=== PATIENT | male | born 1975 | race American Indian/Alaskan Native ===

== ENCOUNTER 2020-06-12 08:13 | Day surgery (SDC) | payer MEDICARE ==
[2020-06-12] MEDS ORDERED: SODIUM CHLORIDE 0.9% 1000 ML 1,000 ML ONE (08:40)
[2020-06-12 09:20] LABS: Hematocrit 33.6 % (35.5-45.6); Hemoglobin 10.5 gm/dl (11.8-15.2); Mean Corpuscular HGB Conc 31 % (32-34); Mean Corpuscular Volume 84 fl (84-94); Platelet Count 249 K/mm3 (140-440); Red Blood Count 4.01 M/mm3 (3.65-5.03)
[2020-06-12 09:22] LABS: Red Cell Distribution Width 21.8 % (13.2-15.2)
[2020-06-12] MEDS ORDERED: HYDROmorphone 1 MG/1 ML INJ IV PRN ×2 (09:35)
[2020-06-12] MEDS ORDERED: fentaNYL 100 MCG/2 ML INJ IV ONE (09:35)
[2020-06-12] MEDS ORDERED: ONDANSETRON 4 MG/2 ML INJ IV PRN (09:35)
[2020-06-12 09:36] LABS: Calcium 7.6 mg/dL (8.4-10.2)
--- NOTE | 2020-06-12 09:36 | Anesthesia Day of Surgery ---
Anesthesia Day of Surgery - Day of Surgery Patient Examined: Yes Patient H&P Reviewed: Yes Patient is NPO: Yes
--- NOTE | 2020-06-12 09:37 | Anesthesia Consultation ---
Anesthesia Consult and Med Hx Date of service: 06/12/20 - Airway Anesthetic Teeth Evaluation: Caps ROM Head & Neck: Adequate Mental/Hyoid Distance: Adequate Mallampati Class: Class II Intubation Access Assessment: Good - Pre-Operative Health Status ASA Pre-Surgery Classification: ASA3 Nerve Block: SC; GA if needed - Pulmonary Hx Smoking: No Hx Asthma: No (+2FS) COPD: No Hx Pneumonia: No Hx Sleep Apnea: No - Cardiovascular System Hx Hypertension: Yes (HX HTN-LOST WT-NO MEDS NOW-BP OK) Hx Heart Attack/AMI: No Hx Heart Murmur: No - Central Nervous System Hx Seizures: No Hx Back Pain: No Hx Psychiatric Problems: No - Endocrine Hx Renal Disease: Yes Hx End Stage Renal Disease: Yes (Last HD yesterday) Hx Cirrhosis: No Hx Liver Disease: No - Hematic Hx Anemia: Yes Hx Sickle Cell Disease: No - Other Systems Hx Alcohol Use: No Hx Substance Use: No Hx Cancer: No Hx Obesity: No
[2020-06-12] MEDS ORDERED: DEXTROSE 50% IN WATER (25GM) 50 ML SYRINGE IV ONE (09:44)
[2020-06-12] MEDS ORDERED: SODIUM CHLORIDE 0.9% 1000 ML 1,000 ML IV SCH (09:45)
[2020-06-12] MEDS ORDERED: MIDAZOLAM 2 MG/2 ML INJ IV NR (10:00)
[2020-06-12] MEDS ORDERED: ceFAZolin/STERILE WATER 2 GM/20 ML SYRINGE IV NR (11:00)
[2020-06-12] MEDS ORDERED: BUPIVACAINE-EPINEPHRINE/PF 0.5%-1:200,000 (10 ML) VIAL INFILTRATI ONE (11:06)
[2020-06-12] MEDS ORDERED: dexAMETHasone 4 MG/ML VIAL ONE (11:07)
[2020-06-12] MEDS ORDERED: HEPARIN 10,000 UNITS/10 ML VIAL ONE (12:50)
[2020-06-12] MEDS ORDERED: HYDROmorphone 1 MG/1 ML INJ ONE (12:50)
[2020-06-12] MEDS ORDERED: GELATIN SPONGE SIZE 100 TP ONE (12:51)
[2020-06-12] MEDS ORDERED: propofoL 200 MG/20 ML VIAL IV ONE ×2 (12:51→14:02)
[2020-06-12] MEDS ORDERED: THROMBIN (RECOMBINANT) 5,000 UNIT VIAL TP ONE ×2 (12:53→14:45)
[2020-06-12] MEDS ORDERED: PROTAMINE SULFATE 50 MG/5 ML INJ ONE (12:53)
[2020-06-12] MEDS ORDERED: LIDOCAINE MPF (2%) 20 MG/1 ML VIAL 5 ML ONE (12:55)
[2020-06-12] MEDS ORDERED: MIDAZOLAM 2 MG/2 ML INJ ONE (12:56)
[2020-06-12] MEDS ORDERED: SODIUM CHLORIDE 0.45% 500 ML IV ONE (12:56)
[2020-06-12] MEDS ORDERED: HEPARIN 10,000 UNITS/10 ML VIAL IV ONE (14:45)
[2020-06-12] MEDS ORDERED: GELATIN SPONGE 12 X 7 TP ONE (14:45)
[2020-06-12] MEDS ORDERED: SODIUM CHLORIDE 0.9% 250 ML IVPB IV ONE (14:45)
--- NOTE | 2020-06-12 14:57 | Post Operative Note ---
Date of procedure: 06/12/20 Pre-op diagnosis: ESRD Post-op diagnosis: same Procedure: Left Arm Brachiocephalic AV Fistula Creation Anesthesia: MAC, regional Surgeon: ALKA VILLARREAL Estimated blood loss: minimal Pathology: none Condition: stable Disposition: PACU
[2020-06-12] MEDS ORDERED: oxyCODONE /ACETAMINOPHEN 5-325MG TAB PO PRN (14:58)
--- NOTE | 2020-06-12 15:00 | Short Stay Summary ---
Short Stay Documentation Date of service: 06/12/20 - History H&P: obtained from office Past Medical History: diabetes, ESRD, hypertension - Allergies and Medications Current Medications: Allergies shellfish derived Adverse Reaction (Severe, Verified 06/10/20 09:46) Swelling Home Medications Medication Instructions Recorded Confirmed Last Taken Type Calcitriol 1 tab PO DAILY 06/10/20 06/12/20 06/11/20 09:00 History Folic Acid/Vit B Complex and C 800 mcg PO DAILY 06/10/20 06/12/20 06/11/20 09:00 History [Dialyvite 800 Chewable Wafer] Renvela 80 mg PO TID 06/10/20 06/12/20 06/11/20 18:00 History Sensipar 180 mg PO DAILY 06/10/20 06/12/20 06/11/20 18:00 History Active Medications Cefazolin Sodium (Ancef/Sterile Water 2 Gm/20 Ml) 2 gm IV PREOP NR Stop: 06/12/20 23:00 Hydromorphone HCl (Dilaudid) 0.25 mg IV Q10MIN PRN PRN Reason: Pain, Moderate (4-6) Stop: 06/13/20 09:34 Hydromorphone HCl (Dilaudid) 0.5 mg IV Q10MIN PRN PRN Reason: Pain , Severe (7-10) Stop: 06/13/20 09:34 Sodium Chloride (Nacl 0.9% 1000 Ml) 1,000 mls @ 42 mls/hr IV DIRECT WALLY Last Admin: 06/12/20 09:50 Dose: 42 mls/hr Documented by: Midazolam HCl (Versed) 2 mg IV PREOP NR Stop: 06/12/20 23:59 Last Admin: 06/12/20 11:46 Dose: 2 mg Documented by: Ondansetron HCl (Zofran) 4 mg IV ONCE PRN PRN Reason: Nausea And Vomiting Oxycodone/Acetaminophen (Percocet 5/325) 2 tab PO Q4H PRN PRN Reason: Pain, Moderate (4-6) - Physical exam General appearance: no acute distress HEENT: Atraumatic Lungs: Normal air movement Heart: Regular rate Extremities: no ischemia - Hospital course Hospital course: the patient was taken to the operating room and had a left arm fistula creation. please refer to the operative note concerning details of the procedure. the patient tolerated the procedure well and was discharged home in stable condition. - Disposition Condition at discharge: Stable Disposition: DC-01 TO HOME OR SELFCARE Short Stay Discharge Plan Follow up with: PRIMARY CARE, [Primary Care Provider] - 7 Days
--- NOTE | 2020-06-12 15:17 | Operative Report ---
STAFF SURGEON: Dr. Jadon Pederson. PREOPERATIVE DIAGNOSIS: End-stage renal disease. POSTOPERATIVE DIAGNOSIS: End-stage renal disease. PROCEDURE PERFORMED: Left arm brachiocephalic AV fistula creation. COMPLICATIONS: None. ESTIMATED BLOOD LOSS: Less than 10 mL. ANESTHESIA: Regional block. INDICATIONS FOR PROCEDURE: This is a 44-year-old gentleman with end-stage renal disease, on hemodialysis, in need of upper extremity access. The patient had a vein mapping performed in the clinic, which demonstrated adequate cephalic vein in the left upper extremity and therefore, the patient was counseled on a fistula creation. He was explained the risks, benefits and alternatives of procedure, expressed understanding and wished to proceed. DESCRIPTION OF PROCEDURE: After appropriate consent was obtained, the patient was brought back to the operating room and placed on the operating table in supine position with the left arm extended. The patient was given appropriate medication for deep sedation. The left arm was prepped and draped in usual sterile fashion with ChloraPrep. Appropriate preoperative antibiotics were administered and appropriate time-out performed indicating correct patient, procedure, and site of the procedure. We then began the operation by making a transverse incision just below the antecubital fossa. This was carried to the subcutaneous tissue with a combination of blunt dissection and electrocautery. The cephalic vein was identified, mobilized and found to be suitable for venous outflow. We then proceeded to continue our dissection medially through the bicipital aponeurosis, which allowed us to expose the brachial artery, which was found to be suitable for arterial inflow. This was mobilized for appropriate distance, both proximally and distally. Control was obtained with vessel loops. The patient was given 5000 units of unfractionated heparin. After appropriate time had elapsed, the cephalic vein and a branch that was ligated and then transected and then the cephalic vein was then ligated in the distal aspect of the incision with a silk suture and then transected. The anterior surface was marked with a marking pen. The vein was flushed with heparinized saline and appropriately spatulated. Then proceeded to place vascular clamps on the brachial artery, both proximally and distally. A longitudinal arteriotomy was made with an 11 blade and extended with Mcdonald scissors. An end-to-side anastomosis was performed with a running 6-0 Prolene suture. Once complete, flow was established through the fistula, which had a nice palpable thrill. The clamps were completely removed. We then proceeded to obtain hemostasis along our suture line, which was obtained with hemostatic agents. Once we were satisfied with hemostasis, the wound was closed with the deep subcutaneous layer with interrupted 3-0 PDS and the skin was approximated with a running 4-0 Monocryl and Dermabond dressing. The patient tolerated the procedure well. The patient emerged from the deep sedation and was sent to recovery in stable condition. All the sponges, instruments and needle counts were correct at completion of the operation. JOB# [id number] N/SONJA
--- NOTE | 2020-06-12 17:20 | Post Anesthesia Evaluation ---
- Post Anesthesia Evaluation Patient Participated: Yes Airway Patent: Yes Stable Respiratory Function: Yes Nausea/Vomiting: No Temp > 96.8F: Yes Pain Manageable: Yes Adequeate Hydration: Yes Anesthesia Complications: No Block Receding Appropriately: Yes Patient on Ventilator: No
[2020-06-12 20:22] VITALS: BP 102/68
== END 2020-06-12 08:14 | disposition home or self-care (01) ==
LOC: OR 08:13
PROVIDERS: ATTEND Surgery Vascular Surgery
DX: I12.0 Hypertensive chronic kidney disease with stage 5 chronic kidney disease or end stage renal disease (principal); E11.22 Type 2 diabetes mellitus with diabetic chronic kidney disease; N18.6 End stage renal disease; J45.909 Unspecified asthma, uncomplicated; D64.9 Anemia, unspecified; Z98.890 Other specified postprocedural states; Z79.899 Other long term (current) drug therapy; Z91.013 Allergy to seafood
CPT/HCPCS: 36415; 36821; 80048; 82962; 85027; A4649; J0690; J1100; J1170; J1644; J2250; J2704; J2720; J3010; J7030; J7050; 64450